=== PATIENT | female | born 1945 | race Caucasian/White ===

== ENCOUNTER 2024-02-01 12:41 | Emergency (ER) | payer MEDICARE, OTHER, SELFPAY ==
[2024-02-01 12:42] VITALS: BP 167/89
[2024-02-01 13:20] VITALS: BMI 28.0
--- NOTE | 2024-02-01 13:37 | ED.GENMED ---
History of Present Illness
<Vesna Lopez PA-C - Last Filed: 02/01/24 18:47>
General
Chief Complaint: Musculo-Skeletal Complaint
Source: patient
Exam Limitations: none
Time Seen by Provider: 02/01/24 13:16
Nursing documentation reviewed up to this point in time: agreed with
History of Present Illness
History of Present Illness:
Patient is a 78F w/ hx CAD, HTN, DM presenting to the emergency department with concerns of body pain. Did initially start patient states that yesterday evening she was getting up from the couch to head to bed when she had pain throughout her
entire body. She did take Tylenol at that time which allowed her to sleep throughout the night. Patient states this morning she had pain in her bilateral legs and came to the emergency department for evaluation. Pain is worse with movement and
walking. Patient denies any pain at rest. Patient does feel the pain is somewhat better than it was yesterday. No numbness/tingling or weakness in extremities. There was no known trauma or inciting event to pain. Patient did note a new rash on
her left face 1 to 2 days ago which was initially itchy although at this point asymptomatic.
Patient denies any fevers, chills, abdominal pain, headache, chest pain, or shortness of breath.
Past History
<Vesna Lopez PA-C - Last Filed: 02/01/24 18:47>
Past History
ED Past Medical History: CAD, HTN and [place]
ED Past Surgical History: None
Social History
Tobacco: Non-smoker
Review of Systems
<Vesna Lopez PA-C - Last Filed: 02/01/24 18:47>
Review of Systems
Allergies reviewed?: Yes
All Other Systems: ROS reviewed and negative except as documented in HPI and ROS
Phy Exam
<Vesna Lopez PA-C - Last Filed: 02/01/24 18:47>
Physical Exam
Physical Exam:
Vitals: Hypertensive, otherwise vital signs stable. Afebrile
General: Patient is well appearing, no acute distress. Nontoxic-appearing
Skin: Few erythematous papules on left lateral cheek/mandibular region with mild crusting.
Head: Normocephalic, atraumatic
Eyes: Sclera nonicteric. EOMs intact. No nystagmus.
Throat: Protecting airway
Neck: Normal ROM, no cervical spine tenderness, no meningismus
Cardiac: Regular rate and rhythm, no murmurs.
Pulm: Normal respiratory effort, no wheezes, rales, rhonchi heard on exam.
Abdomen: No abdominal tenderness.
Back: No midline spinal tenderness. Negative straight leg raise bilaterally
Extremities: Bilateral upper and lower extremities atraumatic. Full range of motion in bilateral upper and lower extremities. Some tenderness in right hip/thigh. No obvious signs of trauma in upper or lower extremities. Bilateral upper and lower
extremities neurovascularly intact. No joint effusions or obvious deformities.
Neuro: AAOx3. CN II-XII intact. No focal neurologic deficits. Steady gait. Fluid speech
Psychiatric: Normal affect.
Course
<Vesna Lopez PA-C - Last Filed: 02/01/24 18:47>
Orders/Labs/Results
Orders:
Orders
02/01/24 13:48
Hip, Right 2-3 Views [CR Hip - RT w/wo Pel 2-3 Vw*] Urgent
Comment:
Reason For Exam: Right hip pain
Include a pelvis x-ray?: Yes
02/01/24 14:14
CPK [Creatine Phosphokinase] Urgent
Complete Blood Count/With Diff Urgent
Comprehensive Metabolic Panel Urgent
02/01/24 15:01
0.9% Sodium Chloride 1000 ml [Nss] 1,000 ml IV BOLUS
02/01/24 16:22
Valacyclovir HCl [Valtrex] 1,000 mg PO NOW STA
02/01/24 16:35
Insulin Aspart [NOVOLOG vial] 5 units SC NOW STA
Abnormal Lab Results
02/01/24 02/01/24
14:14 16:14
WBC 13.2 H 10^3/uL
(4.8-10.8)
MPV 10.5 H fL
(7.4-10.4)
Abs Immat Gran (auto) 0.1 H 10^3/uL
(0-0.05)
Absolute Neuts (auto) 11.6 H 10^3/uL
(1.4-6.5)
Absolute Lymphs (auto) 1.0 L 10^3/uL
(1.2-3.4)
Immature Gran % 0.6 H %
(0-0.5)
Neutrophils % 88.0 H %
(42.2-75.2)
Lymphocytes % 7.4 L %
(20.5-51.1)
Sodium 134 L mmol/L
(135-145)
Carbon Dioxide 21 L mmol/L
(22-30)
BUN 18 H mg/dl
(7-17)
Glucose 462 H* mg/dl
(70-99)
Calcium 10.9 H mg/dl
(8.4-10.2)
Creatine Kinase 21 L U/L
(30-135)
Total Protein 6.1 L g/dl
(6.3-8.2)
POC Glucose 381 H mg/dl
(70-99)
02/01/24 14:14
02/01/24 14:14
Vital Signs
Initial and Last Documented VS:
Initial Vital Signs
Temp Pulse Resp BP Pulse Ox
98.2 F 95 16 167/89 98
02/01/24 12:42 02/01/24 12:42 02/01/24 12:42 02/01/24 12:42 02/01/24 12:42
Last Documented Vital Signs
Temp Pulse Resp BP Pulse Ox
98.2 F 92 18 164/88 98
02/01/24 12:42 02/01/24 17:05 02/01/24 17:05 02/01/24 17:05 02/01/24 17:05
<Lorene Chew, DO - Last Filed: 02/01/24 15:02>
Orders/Labs/Results
Orders:
Orders
02/01/24 13:48
Hip, Right 2-3 Views [CR Hip - RT w/wo Pel 2-3 Vw*] Urgent
Comment:
Reason For Exam: Right hip pain
Include a pelvis x-ray?: Yes
02/01/24 14:14
CPK [Creatine Phosphokinase] Urgent
Complete Blood Count/With Diff Urgent
Comprehensive Metabolic Panel Urgent
02/01/24 15:01
0.9% Sodium Chloride 1000 ml [Nss] 1,000 ml IV BOLUS
02/01/24 16:22
Valacyclovir HCl [Valtrex] 1,000 mg PO NOW STA
02/01/24 16:35
Insulin Aspart [NOVOLOG vial] 5 units SC NOW STA
Abnormal Lab Results
02/01/24 02/01/24
14:14 16:14
WBC 13.2 H 10^3/uL
(4.8-10.8)
MPV 10.5 H fL
(7.4-10.4)
Abs Immat Gran (auto) 0.1 H 10^3/uL
(0-0.05)
Absolute Neuts (auto) 11.6 H 10^3/uL
(1.4-6.5)
Absolute Lymphs (auto) 1.0 L 10^3/uL
(1.2-3.4)
Immature Gran % 0.6 H %
(0-0.5)
Neutrophils % 88.0 H %
(42.2-75.2)
Lymphocytes % 7.4 L %
(20.5-51.1)
Sodium 134 L mmol/L
(135-145)
Carbon Dioxide 21 L mmol/L
(22-30)
BUN 18 H mg/dl
(7-17)
Glucose 462 H* mg/dl
(70-99)
Calcium 10.9 H mg/dl
(8.4-10.2)
Creatine Kinase 21 L U/L
(30-135)
Total Protein 6.1 L g/dl
(6.3-8.2)
POC Glucose 381 H mg/dl
(70-99)
02/01/24 14:14
02/01/24 14:14
Vital Signs
Initial and Last Documented VS:
Initial Vital Signs
Temp Pulse Resp BP Pulse Ox
98.2 F 95 16 167/89 98
02/01/24 12:42 02/01/24 12:42 02/01/24 12:42 02/01/24 12:42 02/01/24 12:42
Last Documented Vital Signs
Temp Pulse Resp BP Pulse Ox
98.2 F 92 18 164/88 98
02/01/24 12:42 02/01/24 17:05 02/01/24 17:05 02/01/24 17:05 02/01/24 17:05
<Vesna Lopez PA-C - Last Filed: 02/01/24 18:47>
MDM/Problems Addressed
Differential Diagnosis Includes:
Not limited to: Arthritis, fibromyalgia, doubt hip fracture, rhabdomyolysis, zoster, contact dermatitis
MDM/Problems Addressed:
78-year-old female presenting with atraumatic body pains since yesterday. Patient found to have rash on left side of face 1 emergency department. No inciting injury or known trauma. Patient hypertensive, otherwise vital signs stable. Physical
exam as above. Patient is a signs of trauma. Mild tenderness to right thigh/right hip although no obvious deformity or swelling. Patient is full range of motion of bilateral upper and lower extremities and neurovascularly intact. No C-spine
pain, nuchal rigidity, midline spinal pain. No weakness or numbness/tingling lower extremities. Patient has steady gait. She does have a few scattered mild erythematous papules near the left lateral cheek near ear. Somewhat consistent with early
shingles no involvement of ear canal. Otherwise�no evidence of diffuse rash. Unknown etiology of patient's body pain. Will check screening basic labs, x-ray hip/pelvis. Patient comfortable following Tylenol at home. Will reassess.
Chronic conditions affecting care:
Diabetes, hypertension
Acute Exacerbation and/or Progression of Chronic Illness:
Acute hyperglycemia, acutely hypertensive
<Vesna Lopez PA-C - Last Filed: 02/01/24 18:47>
*Pulse Oximetry
Patient hypoxic: no
*EKG
Interpreted by ED Provider?: NA
*Molecular Spectroscopist Interpretation
Rate: Molecular Spectroscopist- N/A
*Critical Care Note
Total Time (30-74mins, 75-104mins- exclusive of procedures): Not Applicable
<Vesna Lopez PA-C - Last Filed: 02/01/24 18:47>
Update Note
Update Note:
Update: X-ray of right hip/pelvis reviewed. Evidence of worsening arthritic changes�may be contributing to patient's symptoms. Otherwise unknown etiology of patient's body pain. Rash on face does appear consistent with early shingles. Will plan
to treat with Valtrex. Labs noted. Mild leukocytosis of 13.2. Chemistry shows significant hyperglycemia 462 with no evidence of DKA/anion gap. Patient is compliant with p.o. diabetes medications. Possible hyperglycemia secondary to zoster
infection. Will give IV fluids, reassess glucose
Update: After liter of IV fluid glucose decreased to 381. Patient asymptomatic and well-appearing. Will give 5 units insulin and discharged with close primary care follow-up. Return precautions discussed at length. Patient given first dose of
Valtrex in emergency department. She will follow-up with primary care later this week for diabetes management and further evaluation of possible shingles. Patient seen with attending physician
ED Attending Note
<Vesna Lopez PA-C - Last Filed: 02/01/24 18:47>
-
Portions of this chart may have been created with voice recognition software.� Occasional wrong word or��sound alike� substitutions may have occurred due to the inherent limitations of voice recognition software.
<Lorene Chew DO - Last Filed: 02/01/24 15:02>
ED Attending Note
Patient seen and examined by attending physician: Yes
I performed the substantive portion of visit, reviewed & personally made and approve the management plan that is documented in note by myself or SARITA.: Yes
I performed a history and physical exam of patient and discussed management with resident, I reviewed resident's note and agree with documented findings and plan of care.: Yes
ED Attending Note:
78-year-old female with history of arthritis presenting to the emergency department for body pain. Patient reports that she stood up yesterday after watching TV, and felt intense pain through her body. Notes that the pain is overall improved,
however is having pain in her right thigh and hip region, also notes generalized shoulder pain and neck discomfort. Denies any inciting injury or trauma. Denies any recent fever. Does note a new rash to the left side of her face that was itchy in
quality. Denies any new exposures. Denies chest pain, difficulty breathing, abdominal pain. Vital signs on arrival are significant for mild hypertension.
On exam, patient well-appearing, nontoxic. Benign cardiac and pulmonary exam. No focal deformity or swelling to extremities. No systemic rash, no tenderness to the cervical/thoracic, lumbar spine. No meningismus or nuchal rigidity. Mild
tenderness to the right thigh and the right hip region without deformity, range of motion intact. Evidence of rash to the left side of the face, erythematous with mild amount of crusting. Rash extends to the ear, without involvement into the ear.
Unclear etiology of patient's diffuse pain. She is afebrile, nontoxic. Rash however does have similar appearance to early zoster. Will screen with laboratory analysis and x-ray imaging of the right thigh.
15:00 - Lab significant for hyperglycemia. Patient does admit to having diabetes, reports compliance with glyburide and metformin. No anion gap or concern for DKA. Will administer IV fluids and recheck. Possible hyperglycemia from underlying
zoster infection. Plan to start patient on Valtrex.
Discharge Plan
Departure
Patient Disposition: Home (Routine Discharge)
Date of Disposition: 02/01/24
Time of Disposition: 16:23
Patient with high blood pressure during this ER visit?: Yes
Condition: Good
Covid-19: Not Applicable
Discharge Problem:
Herpes zoster, Complaints of total body pain
Instructions: Shingles, BLOOD PRESSURE
Prescriptions:
New
valacyclovir [Valtrex] 1 gram tablet
1,000 mg PO TID 7 Days Qty: 20 0RF
No Action
atorvastatin [Lipitor] 40 mg Tablet
40 mg PO DAILY
metformin 500 mg Tablet
1,000 mg PO BID
Theragen Tablet
1 tab PO DAILY
clopidogrel [Plavix] 75 mg Tablet
75 mg PO DAILY
glimepiride 2 mg Tablet
4 mg PO BID
calcium carbonate [Calcium 500] 500 mg calcium (1,250 mg) Tablet
500 mg PO DAILY
ascorbic acid (vitamin C) [Vitamin C] 500 mg Tablet
500 mg PO DAILY
losartan 25 mg Tablet
25 mg PO BID
metoprolol succinate [Toprol XL] 25 mg Tablet Extended Release 24 Hr
25 mg PO DAILY
levothyroxine [Synthroid] 112 mcg Tablet
112 mcg PO DAILY
duloxetine [Cymbalta] 30 mg Capsule,Delayed Release(Dr/Ec)
30 mg PO BID
omega 5-ohi-uis-fish oil [Fish Oil] 1,000 (120-180) mg Capsule
1 cap PO DAILY
coQ10 (ubiquinol) 100 mg Capsule
200 mg PO DAILY
Referrals:
Bay Heller, DO [Family Provider] - Next open appointment
Activity Restrictions/Additional Instructions:
Return to the emergency department with any fever, chills, severe headache, severe abdominal pain, intractable nausea/vomiting, high blood sugar readings at home, numbness/tingling, significant worsening in rash, intractable pain, or any other
concerns
-You should take the Valtrex 3 times a day for the next week. It is important to stay well-hydrated. Continue to take all your medications as prescribed at home.
-You can take Tylenol as needed for body pain.
-Follow-up with your primary care provider in the next few days to ensure that rash is improving. You should follow-up with you for further management of your diabetes. You may require some medication adjustments.
Monitor your symptoms closely and return to the emergency department with any acute worsening/new
Interventions
Interventions:
*Risk Screen - Suicide Last Done: 02/01/24 14:15
*General Assessment Last Done: 02/01/24 13:20
*Neglect/Abuse Screening Last Done: 02/01/24 14:15
ED- Fall Risk Assessment Last Done: 02/01/24 13:20
*ED COVID-19 Vaccine History Last Done: 02/01/24 13:20
*Nursing Disposition Last Done: 02/01/24 17:05
ED-Musculoskeletal Assessment Last Done: 02/01/24 13:20
Discharge Date and Time
Discharge Date/Time: 02/01/24 17:10
Print Language: MALAY
[2024-02-01 14:15] VITALS: BP 162/86
[2024-02-01 14:40] LABS: % Basophils 0.2 % (0-2); % Immature Granulocytes 0.6 % (0-0.5); % Lymphocytes 7.4 % (20.5-51.1); % Monocytes 3.8 % (1.7-9.3); Absolute Immature Granulocytes 0.1 10^3/uL (0-0.05); Absolute Monocytes 0.5 10^3/uL (0.1-0.6); Absolute Neutrophils 11.6 10^3/uL (1.4-6.5); Hematocrit 43.6 % (37.0-47.0); Hemoglobin 14.9 g/dL (12.0-16.0); Mean Corp Hgb Conc. 34.2 g/dL (33.0-37.0); Mean Corpuscular Hgb 29.3 pg (27.0-31.0); Mean Corpuscular Volume 85.7 fL (81.0-99.0); Mean Platelet Volume 10.5 fL (7.4-10.4); Nucleated Red Blood Cells % 0 %; Platelet Count 255 10^3/uL (130-400); Red Blood Cell Count 5.09 10^6/uL (4.20-5.40); Red Cell Dist. Width 12.4 % (11.5-14.5); White Blood Cell Count 13.2 10^3/uL (4.8-10.8)
[2024-02-01 14:47] LABS: ALT (SGPT) 23 U/L (0-35); AST (SGOT) 27 U/L (14-36); Albumin 4.1 g/dl (3.5-5.0); Alkaline Phosphatase 79 U/L (38-126); Blood Urea Nitrogen 18 mg/dl (7-17); Calcium 10.9 mg/dl (8.4-10.2); Carbon Dioxide 21 mmol/L (22-30); Chloride 99 mmol/L (98-107); Creatine Phosphokinase 21 U/L (30-135); Estimated Creatinine Clearance 69 ml/min; Glucose 462 mg/dl (70-99); Potassium 4.6 mmol/L (3.5-5.1); Sodium 134 mmol/L (135-145); Total Bilirubin 1.3 mg/dl (0.2-1.3); Total Protein 6.1 g/dl (6.3-8.2); eGFR > 60.00
[2024-02-01] MEDS: NSS 1000 IV (15:10)
[2024-02-01 16:16] LABS: Glucose - Point of Care 381 mg/dl (70-99)
[2024-02-01] MEDS: NOVOLOG vial 5 UNITS SC (16:55)
[2024-02-01] MEDS: VALTREX 1000 MG PO (16:57)
[2024-02-01 17:05] VITALS: BP 164/88
--- NOTE | 2024-02-01 17:27 | EDRN ---
Reviewed discharge instructions with patient. Verbalized understanding. Ambulated with steady gait to the lobby.
== END 2024-02-01 17:10 | disposition home or self-care (01) ==
LOC: EMR 12:41
PROVIDERS: Physician Assistant; EMERGENCY PHYSICIAN Student in an Organized Health Care Education/Training Program; FAMILY PHYSICIAN Family Medicine
DX: B02.9 Zoster without complications (principal); M79.651 Pain in right thigh; M25.551 Pain in right hip; M25.519 Pain in unspecified shoulder; M79.605 Pain in left leg; M79.604 Pain in right leg; E11.65 Type 2 diabetes mellitus with hyperglycemia; I25.10 Atherosclerotic heart disease of native coronary artery without angina pectoris; I10 Essential (primary) hypertension; M19.90 Unspecified osteoarthritis, unspecified site; I25.2 Old myocardial infarction
CPT/HCPCS: 99284; 96360; 96372; 73502; 80053; 82550; 82962; 85025

== ENCOUNTER → 2024-02-16 10:04 | Outpatient (REF) | payer MEDICARE, OTHER, SELFPAY | LOC: HWRAD 10:04 | PROVIDERS: ATTENDING PHYSICIAN Family Medicine | DX: Z78.0 Asymptomatic menopausal state (principal); Z12.31 Encounter for screening mammogram for malignant neoplasm of breast; I50.9 Heart failure, unspecified | CPT/HCPCS: 71046; 77063; 77067; 77080; 93306 ==

== ENCOUNTER → 2024-04-06 14:46 | Outpatient (REF) | payer MEDICARE, OTHER, SELFPAY | LOC: HWRAD 14:46 | PROVIDERS: ATTENDING PHYSICIAN Family Medicine | DX: M79.601 Pain in right arm (principal) | CPT/HCPCS: 73030; 73060 ==

== ENCOUNTER → 2024-11-02 11:04 | Outpatient (REF) | payer MEDICARE, OTHER, SELFPAY | LOC: HWRAD 11:04 | PROVIDERS: ATTENDING PHYSICIAN Family Medicine | DX: I71.20 Thoracic aortic aneurysm, without rupture, unspecified (principal) | CPT/HCPCS: 71250 ==

== ENCOUNTER → 2024-11-03 14:37 | Outpatient (REF) | payer MEDICARE, OTHER, SELFPAY | LOC: HWRAD 14:37 | PROVIDERS: ATTENDING PHYSICIAN Family Medicine | DX: I25.10 Atherosclerotic heart disease of native coronary artery without angina pectoris (principal) | CPT/HCPCS: 75571 ==

== ENCOUNTER → 2025-02-16 11:12 | Outpatient (REF) | payer MEDICARE, OTHER, SELFPAY | LOC: HWWDC 11:12 | PROVIDERS: ATTENDING PHYSICIAN Family Medicine | DX: Z12.31 Encounter for screening mammogram for malignant neoplasm of breast (principal) | CPT/HCPCS: 77063; 77067 ==

== ENCOUNTER → 2025-04-14 10:11 | Outpatient (REF) | payer MEDICARE, OTHER, SELFPAY | LOC: PAVMRI 10:11 | PROVIDERS: ATTENDING PHYSICIAN Family Medicine | DX: R42 Dizziness and giddiness (principal) | CPT/HCPCS: 70553; A9575 ==